=== PATIENT | male | born 1970 | race Caucasian/White ===

== ENCOUNTER 2020-09-20 15:01 | Outpatient (CLI) | payer OTHER ==
--- NOTE | 2020-09-20 16:27 | MRI ---
MRI LUMBAR SPINE NONCONTRAST: DATE: 09/20/2020 HISTORY: 49-year-old male with lumbar radiculopathy, left side COMPARISON: None FINDINGS: For the purposes of this report, it will be assumed that there are 5 lumbar-type vertebrae. Vertebral body heights are maintained. Disc spaces are maintained, with no high-grade disc desiccation. No scoliosis or spondylolisthesis. Normal bone marrow signal. Conus medullaris terminates at upper L2. T12-L1:Normal L1-2:Normal L2-3:Normal L3-4:No significant right neural foraminal stenosis. Mild left neural foraminal stenosis. No signific ant central spinal canal stenosis. L4-5:Bilateral mild to moderate degenerative facet hypertrophy. Mild disc bulge slightly indents vent ral aspect of thecal sac and encroaches upon bilateral neural foramina. Mild right and moderate left neural foraminal stenosis. Mild to moderate right lateral recess stenosis and mild left lateral recess stenosis. Mild central spinal canal stenosis. L5-S1:Small central disc protrusion with central and left paracentral annular fissure. This small dis c protrusion abuts the left S1 nerve root at the lateral recess, but does not significantly displace it. No central spinal canal stenosis. No right neural foraminal stenosis. Very mild left annie ral foraminal stenosis. Mild to moderate right facet DJD. IMPRESSION: 1) mild lower level lumbar spondylosis. 2) small central disc protrusion with annular fissure at L5-S1 3) moderate left neural foraminal stenosis and mild central spinal canal stenosis, at L4-5
== END 2020-09-20 15:02 | disposition home or self-care (01) ==
LOC: BICMRI 15:01
PROVIDERS: ATTEND Physician Assistant Medical
DX: M47.26 Other spondylosis with radiculopathy, lumbar region (principal); M51.17 Intervertebral disc disorders with radiculopathy, lumbosacral region; M48.061 Spinal stenosis, lumbar region without neurogenic claudication
CPT/HCPCS: 72148

== ENCOUNTER 2025-05-04 22:56 | Inpatient (IN) | payer OTHER ==
[~2025-05-04 22:56] MED LIST: Iopamidol 370 76% 100 ML VIAL ONE
[2025-05-04 23:41] LABS: #Basophils Less than 0.03 10x3/uL (0.0-0.2); #Eosinophils Less than 0.03 10x3/uL (0.0-0.7); #Monocytes Less than 0.03 10x3/uL (0.11-0.59); #Neutrophils 3.88 10x3/uL (1.40-6.50); %Basophils 0.2 % (0.0-1.0); %Eosinophils 0.2 % (0.0-10.0); %Lymphocytes 5.7 % (21.0-51.0); %Monocytes 0.5 % (0.0-10.0); %Neutrophils 92.7 % (42.0-75.0); Hematocrit 46.0 % (42.0-52.0); Hemoglobin 16.1 g/dL (14.0-18.0); Mean Corpuscular Hemoglobin 30.0 pg (27.0-31.0); Mean Corpuscular Volume 85.7 fL (78.0-98.0); Platelet Count 180 10x3/uL (130-400); Red Blood Cell (RBC) Count 5.37 mill/uL (4.70-6.10); White Blood Cell (WBC) Count 4.19 10x3/uL (4.8-10.8)
[2025-05-04 23:44] LABS: INR-International Normal Ratio 1.1; PTT 26.1 sec (22.9-36.1); Prothrombin Time 14.7 sec (12.0-14.7)
[2025-05-04 23:46] LABS: ALT (SGPT) 82 U/L (Less than 45); AST (SGOT) 117 U/L (11-34); Albumin 4.4 g/dL (3.1-4.5); Alkaline Phosphatase 68 U/L (40-110); Anion Gap 19 mmol/L (10-20); BUN (Urea Nitrogen) 19 mg/dL (8.4-25.7); Bilirubin, Total 0.7 mg/dL (0.3-1.2); Calc. Creatinine Clearance 0 mL/min (70-130); Calcium 9.5 mg/dL (7.8-10.44); Carbon Dioxide 18 mmol/L (22-29); Chloride 102 mmol/L (98-107); Globulin 2.9 g/dL (2.4-3.5); Glucose 200 mg/dL (70-105); Potassium 4.0 mmol/L (3.5-5.1); Sodium 135 mmol/L (136-145)
[2025-05-05] MEDS ORDERED: Ondansetron PF 4 MG/2 ML Vial ONE (00:22)
[2025-05-05] MEDS ORDERED: Acetaminophen 500 MG TAB ONE (01:25)
[2025-05-05 02:16] LABS: Bacteria/HPF None Seen HPF (None Seen); CAUTI Indications for Culture Fever or rigors; Glucose, Urine (Dipstick) Normal (Negative); Leukocyte Negative Leu/uL (Negative); Protein, Urine (Dipstick) Negative (Neg-Trace); RBC/HPF Greater than 50 HPF (0-3); Specific Gravity, Urine 1.050 (1.002-1.036)
[2025-05-05 02:17] LABS: Urine Culture Reflex Yes Yes
[2025-05-05] MEDS ORDERED: Ondansetron PF 4 MG/2 ML Vial IVP PRN (03:15)
[2025-05-05] MEDS ORDERED: Calcium Carbonate 500 MG ChewTAB PO PRN (03:15)
[2025-05-05] MEDS ORDERED: Prochlorperazine 10 MG/2 ML VIAL ONE (03:40)
[2025-05-05] MEDS: Vancomycin (BATCH) 2.5 GM in Premix 1 BAG IVPB SCH (05:08)
[2025-05-05 05:11] VITALS: BMI 32.1
[2025-05-05 05:41] LABS: #Basophils 0.03 10x3/uL (0.0-0.2); #Eosinophils Less than 0.03 10x3/uL (0.0-0.7); #Monocytes 0.56 10x3/uL (0.11-0.59); #Neutrophils 12.92 10x3/uL (1.40-6.50); %Basophils 0.2 % (0.0-1.0); %Eosinophils 0.0 % (0.0-10.0); %Lymphocytes 2.1 % (21.0-51.0); %Monocytes 4.0 % (0.0-10.0); %Neutrophils 93.1 % (42.0-75.0); Hematocrit 38.2 % (42.0-52.0); Hemoglobin 13.0 g/dL (14.0-18.0); Mean Corpuscular Hemoglobin 29.7 pg (27.0-31.0); Mean Corpuscular Volume 87.4 fL (78.0-98.0); Platelet Count 176 10x3/uL (130-400); Red Blood Cell (RBC) Count 4.37 mill/uL (4.70-6.10); White Blood Cell (WBC) Count 13.88 10x3/uL (4.8-10.8)
[2025-05-05 05:56] LABS: ALT (SGPT) 133 U/L (Less than 45); AST (SGOT) 121 U/L (11-34); Albumin 3.8 g/dL (3.1-4.5); Alkaline Phosphatase 51 U/L (40-110); Anion Gap 14 mmol/L (10-20); BUN (Urea Nitrogen) 13 mg/dL (8.4-25.7); Bilirubin, Total 0.6 mg/dL (0.3-1.2); Calc. Creatinine Clearance 114 mL/min (70-130); Calcium 8.3 mg/dL (7.8-10.44); Carbon Dioxide 19 mmol/L (22-29); Chloride 104 mmol/L (98-107); Globulin 2.2 g/dL (2.4-3.5); Glucose 233 mg/dL (70-105); Potassium 3.8 mmol/L (3.5-5.1); Sodium 133 mmol/L (136-145)
[2025-05-05] MEDS ORDERED: Senokot S 8.6-50 MG TAB PO PRN (07:26)
[2025-05-05] MEDS: Pantoprazole 40 MG VIAL IVP SCH (09:17)
[2025-05-05] MEDS: Vancomycin 1.25 GM / NS 250 ML VIAL-2-BAG IVPB SCH (13:18)
[2025-05-05] MEDS ORDERED: Dextrose 50% Abboject 50 ML SYRINGE SLOW IVP PRN (13:52)
[2025-05-05] MEDS ORDERED: Glucagon 1 MG/ML KIT IM PRN (13:52)
[2025-05-05] MEDS: Acetaminophen 325 MG TAB PO PRN (16:55)
[2025-05-05 23:16] VITALS: TEMP 98.2
[2025-05-06 04:02] LABS: #Basophils Less than 0.03 10x3/uL (0.0-0.2); #Eosinophils 0.11 10x3/uL (0.0-0.7); #Monocytes 0.74 10x3/uL (0.11-0.59); #Neutrophils 8.13 10x3/uL (1.40-6.50); %Basophils 0.2 % (0.0-1.0); %Eosinophils 1.1 % (0.0-10.0); %Lymphocytes 8.3 % (21.0-51.0); %Monocytes 7.5 % (0.0-10.0); %Neutrophils 82.5 % (42.0-75.0); Hematocrit 39.8 % (42.0-52.0); Hemoglobin 13.8 g/dL (14.0-18.0); Mean Corpuscular Hemoglobin 30.2 pg (27.0-31.0); Mean Corpuscular Volume 87.1 fL (78.0-98.0); Platelet Count 180 10x3/uL (130-400); Red Blood Cell (RBC) Count 4.57 mill/uL (4.70-6.10); White Blood Cell (WBC) Count 9.86 10x3/uL (4.8-10.8)
[2025-05-06 04:29] LABS: ALT (SGPT) 94 U/L (Less than 45); AST (SGOT) 53 U/L (11-34); Albumin 3.7 g/dL (3.1-4.5); Alkaline Phosphatase 44 U/L (40-110); Anion Gap 13 mmol/L (10-20); BUN (Urea Nitrogen) 9 mg/dL (8.4-25.7); Bilirubin, Total 0.6 mg/dL (0.3-1.2); Calc. Creatinine Clearance 139 mL/min (70-130); Calcium 8.7 mg/dL (7.8-10.44); Carbon Dioxide 21 mmol/L (22-29); Chloride 105 mmol/L (98-107); Globulin 2.7 g/dL (2.4-3.5); Glucose 132 mg/dL (70-105); Potassium 3.9 mmol/L (3.5-5.1); Sodium 135 mmol/L (136-145)
[2025-05-06 04:37] LABS: Vancomycin, Random 24.6 ug/mL (See Comment)
[2025-05-06 08:23] VITALS: BP 150/86
== END 2025-05-06 10:35 | disposition home or self-care (01) | DRG 872 ==
LOC: ERS 22:56 → 2SE 05-05 04:04
PROVIDERS: ADMIT Student in an Organized Health Care Education/Training Program; ATTEND Internal Medicine
DX: A41.9 Sepsis, unspecified organism (principal); E87.1 Hypo-osmolality and hyponatremia; R50.9 Fever, unspecified; E66.9 Obesity, unspecified; E78.5 Hyperlipidemia, unspecified; F12.10 Cannabis abuse, uncomplicated; F10.90 Alcohol use, unspecified, uncomplicated; E11.9 Type 2 diabetes mellitus without complications; I10 Essential (primary) hypertension; Z98.890 Other specified postprocedural states; Z68.32 Body mass index [BMI] 32.0-32.9, adult; Z79.899 Other long term (current) drug therapy; Z98.1 Arthrodesis status; K52.9 Noninfective gastroenteritis and colitis, unspecified
CPT/HCPCS: 36415; 36416; 74177; 76705; 80053; 80202; 81001; 83605; 84145; 84484; 85025; 85610; 85730; 87040; 87081; 87086; 87426; 93005; 96374; 96375; J0780; J2270; J2272; J2405; J2470; J2543; J3373; J7050; J7120; Q9967

== ENCOUNTER 2025-05-29 12:30 | Outpatient (CLI) | payer OTHER | END 2025-05-29 12:31 | disposition home or self-care (01) | LOC: PET 12:30 | PROVIDERS: ATTEND Urology | DX: C61 Malignant neoplasm of prostate (principal) | CPT/HCPCS: 78815; A9595-JZ ==

== ENCOUNTER 2025-07-03 12:30 | Outpatient (CLI) | payer OTHER ==
[2025-07-03 13:34] LABS: Estimated GFR - POC 89.0
== END 2025-07-03 12:31 | disposition home or self-care (01) ==
LOC: SCSMRI 12:30
PROVIDERS: ATTEND Urology
DX: C61 Malignant neoplasm of prostate (principal); M87.852 Other osteonecrosis, left femur; M87.851 Other osteonecrosis, right femur; M24.851 Other specific joint derangements of right hip, not elsewhere classified; N42.89 Other specified disorders of prostate
CPT/HCPCS: 36415; 72197; 82565